=== PATIENT | male | born 1995 | race African-American/Black ===

== ENCOUNTER 2018-03-17 10:32 | Emergency (ER) | payer OTHER ==
[~2018-03-17] VITALS: Ht 180.3 cm; Wt 120.2 kg
== END 2018-03-17 13:50 | disposition home or self-care (01) ==
LOC: ER 10:32
DX: K59.00 Constipation, unspecified (principal); R10.84 Generalized abdominal pain

== ENCOUNTER 2020-05-06 16:27 | Emergency (ER) | payer OTHER ==
[~2020-05-06] VITALS: Ht 180.3 cm; Wt 124.7 kg
== END 2020-05-06 20:30 | disposition home or self-care (01) ==
LOC: ER 16:27
DX: T61.774A Other fish poisoning, undetermined, initial encounter (principal); K52.1 Toxic gastroenteritis and colitis; Y92.89 Other specified places as the place of occurrence of the external cause

== ENCOUNTER 2021-10-17 22:59 | Emergency (ER) | payer OTHER ==
[~2021-10-17] VITALS: Ht 180.3 cm; Wt 128.8 kg
[2021-10-18] MEDS ORDERED: INTESTINEX680 M1 PO (03:23)
[2021-10-18] MEDS ORDERED: ZOFRAN8 MG PO (03:23)
[2021-10-18] MEDS ORDERED: PEPCID40 MG PO (03:23)
== END 2021-10-18 03:28 ==
LOC: ER 22:59
DX: K52.89 Other specified noninfective gastroenteritis and colitis (principal)

== ENCOUNTER 2024-01-19 23:23 | Emergency (ER) | payer OTHER ==
[~2024-01-19] VITALS: Ht 180.3 cm; Wt 104.3 kg
[~2024-01-19 23:23] MED LIST: INTESTINEX680 M1 PO; PEPCID40 MG PO; ZOFRAN8 MG PO
[2024-01-20] MEDS ORDERED: KETOROLAC TROMETHAMINE 60 MG VIAL IM STA (03:11)
[2024-01-20] MEDS ORDERED: DEXAMETHASONE SODIUM PHOSPHATE 4 MG/ML VIAL IM STA (03:12)
[2024-01-20] MEDS ORDERED: OxyCODONE HCL/APAP UD (PERCOCET) PO STA (03:12)
== END 2024-01-20 05:47 | disposition home or self-care (01) ==
LOC: ER 23:24
DX: M25.552 Pain in left hip (principal)